=== PATIENT | male | born 1990 | race Caucasian/White ===

== ENCOUNTER 2021-03-02 22:02 | Emergency (ER) | payer SELFPAY ==
[2021-03-02] MEDS ORDERED: Sodium Chloride 0.9% 10 ML Syringe FLUSH PRN (22:06)
[2021-03-02] MEDS ORDERED: Ondansetron 4 MG/2 ML SDV IVPUSH ONE (22:06)
[2021-03-02] MEDS ORDERED: Sodium Chloride 0.9% 1,000 ML IV ONE (22:06)
[2021-03-02] MEDS ORDERED: Iopamidol 755 Mg/ML 75 ML Bottle IVPUSH ONE (22:37)
--- NOTE | 2021-03-02 22:39 | EDM.PDOC ---
ED HPI GENERAL MEDICAL PROBLEM - General Chief Complaint: Gastrointestinal Problem Stated Complaint: ABDOMINAL PAIN Time Seen by Provider: 03/02/21 22:15 Source of Information: Reports: Patient History Limitations: Reports: No Limitations - History of Present Illness INITIAL COMMENTS - FREE TEXT/NARRATIVE: 31 YO WM PRESENTS TO ER WITH COMPLAINTS OF ABDOMINAL PAIN WITH INTRACTABLE VOMITING WHICH BEGAN AT APPROXIMATELY 1PM TODAY. PT REPORTS HE HAD A BOWEL MOVEMENT WITH LOOSE STOOL FOLLOW BY NAUSEA AND INTRACTABLE VOMITING. PT REPORTS SINCE 3PM HE HAS HAD RLQ ABDOMINAL PAIN AND THE VOMITING CONTINUED WITH ANY PO INTAKE. PT REPORTS NO APPETITE AND LOW GRADE FEVER. PT DENIES DYSURIA, HEMATURIA OR BACK PAIN. Onset: Today Location: Reports: Abdomen Quality: Reports: Pressure Severity: Moderate Improves with: Reports: None Worsens with: Reports: Eating Associated Symptoms: Reports: No Other Symptoms, Fever/Chills, Nausea/Vomiting, Other (ABDOMINAL PAIN) Right Lower Abdomen Pain Score (Numeric/FACES): 7 - Related Data Allergies Allergy/AdvReac Type Severity Reaction Status Date / Time No Known Allergies Allergy Verified 03/02/21 22:37 ED ROS GENERAL - Review of Systems Review Of Systems: See Below Constitutional: Reports: Fever, Chills, Decreased Appetite Respiratory: Reports: No Symptoms Cardiovascular: Reports: No Symptoms Endocrine: Reports: No Symptoms GI/Abdominal: Reports: Abdominal Pain, Diarrhea, Nausea, Vomiting : Reports: No Symptoms Musculoskeletal: Reports: No Symptoms Skin: Reports: No Symptoms Neurological: Reports: No Symptoms Psychiatric: Reports: No Symptoms Hematologic/Lymphatic: Reports: No Symptoms Immunologic: Reports: No Symptoms ED EXAM, GI/ABD - Physical Exam Exam: See Below Exam Limited By: No Limitations General Appearance: Alert, WD/WN, No Apparent Distress Head: Atraumatic, Normocephalic Neck: Normal Inspection, Supple, Non-Tender, Full Range of Motion Respiratory/Chest: No Respiratory Distress, Lungs Clear, Normal Breath Sounds, No Accessory Muscle Use, Chest Non-Tender Cardiovascular: Normal Peripheral Pulses, Regular Rate, Rhythm, No Edema, No Gallop, No JVD, No Murmur, No Rub GI/Abdominal Exam: Normal Bowel Sounds, Soft, No Organomegaly, No Distention, No Abnormal Bruit, No Mass, Pelvis Stable, Rebound, Tender (RLQ) Extremities: Normal Inspection, Normal Range of Motion, Non-Tender, Normal Capillary Refill, No Pedal Edema Neurological: Alert, Oriented, CN II-XII Intact, Normal Cognition, Normal Gait, No Motor/Sensory Deficits Psychiatric: Normal Affect, Normal Mood Skin Exam: Warm, Dry, Intact, Normal Color, No Rash Course - Vital Signs Last Recorded V/S: Last Vital Signs Temp 99.1 F 03/02/21 22:02 Pulse 74 03/02/21 22:02 Resp 18 03/02/21 22:02 BP 117/66 03/02/21 22:02 Pulse Ox 97 03/02/21 22:02 - Orders/Labs/Meds Orders: Active Orders 24 hr Category Date Time Status Peripheral IV Care [RC] . DIRECTED Care 03/02/21 22:06 Active Abdomen Pelvis w Cont [CT] Stat Exams 03/02/21 22:06 Ordered Ertapenem [INVanz] 1 gm Med 03/02/21 23:16 Ordered Sodium Chloride 0.9% [Normal Saline] 50 ml IV ONETIME Sodium Chloride 0.9% [Normal Saline] 50 ml Med 03/02/21 22:45 Active IV ASDIRECTED Sodium Chloride 0.9% [Saline Flush] Med 03/02/21 22:06 Active 10 ml FLUSH Q8HR PRN Peripheral IV Insertion Adult [OM.PC] Routine Oth 03/02/21 22:06 Ordered Medication Orders Sodium Chloride (Normal Saline) 50 mls @ 200 mls/min IV ASDIRECTED VINAY Last Admin: 03/02/21 22:38 Dose: 200 mls/min Documented by: ENDECAY Ertapenem 1 gm/ Sodium (Chloride) 50 mls @ 100 mls/hr IV ONETIME ONE Stop: 03/02/21 23:45 Sodium Chloride (Sodium Chloride 0.9% 10 Ml Syringe) 10 ml FLUSH Q8HR PRN PRN Reason: keep vein open Last Admin: 03/02/21 22:15 Dose: 10 ml Documented by: Labs: Laboratory Tests 03/02/21 03/02/21 Range/Units 22:15 22:15 WBC 17.60 H (5.00-10.00) 10^3/uL RBC 5.03 (4.50-6.00) 10^6/uL Hgb 14.6 (13.0-17.0) g/dL Hct 41.0 (40.0-52.0) % MCV 81.5 L (82.0-92.0) fL MCH 29.0 (27.0-31.0) pg MCHC 35.6 (32.0-36.0) g/dL RDW 12.1 (11.5-14.5) % Plt Count 203 (150-400) 10^3/uL MPV 9.3 (7.4-10.4) fL Add Manual Diff Yes Neutrophils % (Manual) 88 H (50-70) % Band Neutrophils % 3 L (4-12) % Lymphocytes % (Manual) 6 L (20-40) % Atypical Lymphs % 0 Monocytes % (Manual) 3 (2-8) % Eosinophils % (Manual) 0 L (1-3) % Basophils % (Manual) 0 (0-1) % Platelet Estimate Adequate Sodium 139 (136-145) mmol/L Potassium 4.2 (3.5-5.1) mmol/L Chloride 101 (98-107) mmol/L Carbon Dioxide 30.5 (21.0-32.0) mmol/L Anion Gap 11.7 (5-15) mmol/L BUN 14 (7-18) mg/dL Creatinine 1.00 (0.51-1.17) mg/dL Est Cr Clr Drug Dosing TNP Estimated GFR (MDRD) > 60 mL/min Glucose 127 (70-140) mg/dL Calcium 8.7 (8.7-10.3) mg/dL Total Bilirubin 0.7 (0.2-1.0) mg/dL AST 15 (15-37) U/L ALT 25 (14-63) U/L Alkaline Phosphatase 64 (46-116) U/L Total Protein 7.3 (6.4-8.2) g/dL Albumin 4.10 (3.40-5.00) g/dL Lipase 72 L (73-393) U/L Meds: Medications Generic Name Dose Route Start Last Admin Trade Name Freq PRN Reason Stop Dose Admin Sodium Chloride 50 mls @ 200 mls/min 03/02/21 22:45 03/02/21 22:38 Normal Saline IV 200 mls/min ASDIRECTED VINAY Administration Ertapenem 1 gm/ Sodium 50 mls @ 100 mls/hr 03/02/21 23:16 Chloride IV 03/02/21 23:45 ONETIME ONE Sodium Chloride 10 ml 03/02/21 22:06 03/02/21 22:15 Sodium Chloride 0.9% 10 Ml Syringe FLUSH 10 ml Q8HR PRN Administration keep vein open Discontinued Medications Generic Name Dose Route Start Last Admin Trade Name Freq PRN Reason Stop Dose Admin Sodium Chloride 1,000 mls @ 999 mls/hr 03/02/21 22:06 03/02/21 22:36 Normal Saline IV 03/02/21 23:06 999 mls/hr .BOLUS ONE Administration Iopamidol 75 ml 03/02/21 22:37 03/02/21 22:38 Iopamidol 755 Mg/Ml 75 Ml Bottle IVPUSH 03/02/21 22:38 75 ml ONETIME ONE Administration Ondansetron HCl 4 mg 03/02/21 22:06 03/02/21 22:42 Ondansetron 4 Mg/2 Ml Sdv IVPUSH 03/02/21 22:07 4 mg ONETIME ONE Administration - Radiology Interpretation Free Text/Narrative:: CT ABD/PELVIS- ACUTE UNCOMPLICATED APPENDICITIS Departure - Departure Time of Disposition: 23:17 Disposition: DC/Tfer to Acute Hospital 02 Condition: Fair Clinical Impression: Acute appendicitis Qualifiers: Acute appendicitis type: with localized peritonitis Appendicitis gangrene presence: without gangrene Appendicitis perforation presence: without perforation Appendicitis abscess presence: without abscess Qualified Code(s): K 35.30 - Acute appendicitis with localized peritonitis, without perforation or gangrene - Discharge Information Referrals: PCP,Unknown [Primary Care Provider] - Forms: ED Department Discharge, Interfacility Transfer [facility] Sepsis Event Note (ED) - Focused Exam Vital Signs: Vital Signs Temp Pulse Resp BP Pulse Ox 03/02/21 22:02 99.1 F 74 18 117/66 97 - My Orders Last 24 Hours: My Active Orders 03/02/21 22:06 Peripheral IV Care [RC] . DIRECTED Abdomen Pelvis w Cont [CT] Stat Sodium Chloride 0.9% [Saline Flush] 10 ml FLUSH Q8HR PRN Peripheral IV Insertion Adult [OM.PC] Routine 03/02/21 22:45 Sodium Chloride 0.9% [Normal Saline] 50 ml IV ASDIRECTED 03/02/21 23:16 Ertapenem [INVanz] 1 gm Sodium Chloride 0.9% [Normal Saline] 50 ml IV ONETIME - Assessment/Plan Last 24 Hours: My Active Orders 03/02/21 22:06 Peripheral IV Care [RC] . DIRECTED Abdomen Pelvis w Cont [CT] Stat Sodium Chloride 0.9% [Saline Flush] 10 ml FLUSH Q8HR PRN Peripheral IV Insertion Adult [OM.PC] Routine 03/02/21 22:45 Sodium Chloride 0.9% [Normal Saline] 50 ml IV ASDIRECTED 03/02/21 23:16 Ertapenem [INVanz] 1 gm Sodium Chloride 0.9% [Normal Saline] 50 ml IV ONETIME Assessment:: 1. ACUTE UNCOMPLICATED APPENDICITIS Plan: 1. CALL PLACED TO TRI BAL PER PATIENTS REQUEST-NO BEDS 2. CALL PLACED TO [facility]- DR WILLSON ACCEPTING @2523 3. INVANZ 1G IV NOW 4. NPO 5. SUPPORTIVE CARE 6. NS@150CC/HR
[2021-03-02] MEDS ORDERED: Sodium Chloride 0.9% 50 ML IV SCH (22:45)
[2021-03-02 22:55] LABS: ANION GAP 11.7 mmol/L (5-15); CHLORIDE,CL 101 mmol/L (98-107); SODIUM,NA 139 mmol/L (136-145)
[2021-03-02] MEDS ORDERED: Ertapenem 1 GM in Sodium Chloride 0.9% 50 ML IV ONE (23:16)
--- NOTE | 2021-03-03 08:34 | CT ---
[id number] CT/CT Abdomen Pelvis W IV EXAM: CT Abdomen Pelvis W IV CLINICAL DATA: RIGHT LOWER ABDOMINAL PAIN COMPARISON STUDY: None. FINDINGS: Lung bases are clear. Liver, spleen, gallbladder, pancreas, adrenal glands, and kidneys are unremarkable. The appendix is fluid-filled and dilated measuring up to 1.0 cm. There is periappendiceal inflammatory change. No lymphadenopathy, free fluid, or pneumoperitoneum. Scattered changes of spondylosis the spine. No fracture or osseous lesion. IMPRESSION: Acute uncomplicated appendicitis Dl Lal DO 03/03/21 [id number] Thank you for allowing us to participate in the care of your patient.
== END 2021-03-03 ==
LOC: KA.ED 22:02
DX: K35.30 Acute appendicitis with localized peritonitis, without perforation or gangrene (principal)
CPT/HCPCS: 36415; 74177; 80053; 83690; 85025; 96365; 96375; 99283; 99285-25; J1335; J2405; J7030; Q9967